=== PATIENT | female | born 1985 | race Caucasian/White ===

== ENCOUNTER 2017-09-25 11:23 | Emergency (ER) | payer OTHER ==
--- NOTE | 2017-09-25 11:28 | EDPHY ---
H & P HPI/ROS: CHIEF COMPLAINT: Eye is red and swollen HISTORY OF PRESENT ILLNESS: This is a healthy immunocompetent 32-year-old female with 3 days of right eye redness and swelling. She has had a profuse watery discharge. The eye feels itchy. She does not report eye pain. No visual changes. She does not use corrective lenses. She has not had fever, malaise, or headache. Her eye has not been matted shut. She denies eye trauma and does not have a foreign body sensation. She was seen at urgent care yesterday and was started on Polytrim ophthalmic drops and acyclovir orally. She has had 3 doses of acyclovir. She presents today because she has not had improvement since beginning these medications. She had shingles on her back when she was in high school. She has never had oral or genital herpes. REVIEW OF SYSTEMS: A ten point review of systems was performed and is negative with the exception of the items mentioned in the HPI. Past medical history: Strep throat a month ago Past surgical history: Noncontributory Social history: She does not use tobacco products. General Appearance: Alert. Vital signs reviewed. Eyes: Visual Acuity: 20/20, noted from Nurse's notes. Pupils:equal round and reactive to light EOMI Lids: Right eye with mild eyelid swelling and erythema. Skin: no proptosis, no vesicles Conjunctivae: Right eye injected with a watery discharge Cornea: exam with fluorescein negative for corneal abrasion Anterior chamber:normal, no hyphema or hypopyon, no dendritic branching. ENT, Mouth: Mucous membranes are moist, no oropharyngeal erythema or edema. External auditory canals are normal bilaterally. Neck: No lymphadenopathy, supple. No meningeal signs. Respiratory: Lungs are clear to auscultation; no wheezes, rales, or rhonchi. Cardiovascular: Regular rate and rhythm; no murmur, rub, or gallop. Skin: Warm and dry, no rashes on exposed skin, normal color. Specifically no vesicles in the region of the eye. There is an erythematous lesion with some scabbing just under the right nostril. Neurological: Alert and oriented. Moving all four extremities easily and equally. Facial sensation is intact to light touch. Psychiatric: Normal affect. Constitutional: Initial Vital Signs Temperature (C) 36.6 C 09/25/17 11:32 Heart Rate 62 09/25/17 11:32 Respiratory Rate 18 09/25/17 11:32 Blood Pressure 146/84 H 09/25/17 11:32 O2 Sat (%) 95 09/25/17 11:32 O2 Delivery Mode Room Air Allergies/Adverse Reactions: Penicillins Allergy (Verified 09/25/17 11:32) itchy rash Home Medications: Medication Instructions Recorded Iud 09/25/17 Medical Decision Making ED Course/Re-evaluation: 32-year-old female with 3 days of painless red eye, watery drainage. No change in vision. Her eye has not been matted shut. She was started on acyclovir Polytrim at an urgent care yesterday. I think that it is too soon for these medications to have shown improvement and explained this to her. I spoke with Dr. Carmichael, ophthalmology, who agrees that it is reasonable to continue these treatments and unreasonable to expect to see relief in her symptoms this early on. He does not recommend any additional treatment. I doubt that this is herpes ophthalmicus. The scabbed lesion that she has is under her nose, not in the appropriate distribution to create eye involvement. I do not see a corneal abrasion or foreign body on exam. Dr. Carmichael will see her in follow-up tomorrow or next day. Differential Diagnosis: I considered a differential diagnosis that includes but is not limited to conjunctivitis, herpes ophthalmicus, keratitis, iritis, corneal abrasion, and foreign body. Departure - Departure Disposition: Home, Routine, Self-Care Clinical Impression: Acute conjunctivitis of right eye Qualifiers: Acute conjunctivitis type: unspecified Qualified Code(s): H10.31 - Unspecified acute conjunctivitis, right eye Condition: Good Instructions: Conjunctivitis (ED) Additional Instructions: Call Dr. Carmichael's office tomorrow to schedule an appointment for Tuesday or Tuesday. If you are worse -- eye pain, change in vision, new or concerning symptoms, you should be re-evaluated. Referrals: Jake Carmichael MD [Medical Doctor] - As per Instructions
[2017-09-25 11:47] VITALS: BP 146/84; PULSE 62; RESP 18; TEMP 98; O2SAT 95
== END 2017-09-25 12:19 | disposition home or self-care (01) ==
LOC: CED 11:23
DX: H10.31 Unspecified acute conjunctivitis, right eye (principal)